=== PATIENT | female | born 1965 | race Caucasian/White ===

== ENCOUNTER 2016-08-09 20:43 | Emergency (ER) | payer OTHER ==
--- NOTE | 2016-08-09 22:32 | ED NURSING NOTES ---
Clinical Report - Nurses [facility] [address] [place] [address] 08/09/2016 20:44 Patient: JANIS YANG TRIAGE Triage time 20:55. Acuity: LEVEL 4. Chief Complaint: MIGRAINE HEADACHE. 20:58. Alert. SEPSIS SCREEN: Sepsis Screen. Negative (no infection suspected/documented). DURAN COMA SCORE: Duran Coma Scale: 15- eyes open spontaneously (4); best verbal response- oriented x 4 (5); best motor response- obeys commands (6). --20:58 Antoine Chavira R.N. 20:54 08/09/16. BP: 115/71. HR: 75. RR: 16. O2 saturation: 100%. Temp: 98.6 F (oral). Pain level now: 10/22. --20:58 Antoine Chavira R.N. Weight: 91.6 kg stated. Height/Length: 65.5 inches Per Patient. BMI: 33.1. --20:57 Antoine Chavira R.N. Medications Wellbutrin Oral 150 mg, daily. --20:55 Antoine Chavira R.N. LaMICtal Oral (Tablet 100 mg) 2 tablets, at bedtime. Levothyroxine Sodium Oral 50 mcg, daily. Neurontin Oral 300 mg, 3x a day. OxyCODONE HCl Oral, as needed. Prazosin HCl Oral 1 mg, daily. SEROquel Oral (Tablet 200 mg) 2 tablets, at bedtime. TiZANidine HCl Oral 8mg, at bedtime. --20:56 Antoine Chavira R.N. Zofran Oral 4 mg, PRN. --20:59 Antoine Chavria R.N. Medication/allergy information source: the patient. --20:58 Antoine Chavira R.N. Allergies Naproxen. Definite Severe (Abnormal bleeding) NSAIDs. Definite Moderate (Abnormal bleeding) Paper tape. Definite Moderate(rash) Sulfa Drugs. Definite Moderate(itching, rash) --20:55 Antoine Chavira R.N. History Arrived by private vehicle. Historian: patient. Accompanied by family. Primary physician (Morteza). This started yesterday. Treatment [employer]: (Oxycodone). PAST MEDICAL HX: Immunizations: up-to-date. The patient has had a hysterectomy. SOCIAL HX: Never smoker. No alcohol use or drug use. No recent travel. No infectious disease exposure. ABUSE ASSESSMENT: No report of abuse. FALL RISK ASSESSMENT: Fall risk assessment completed. No fall risk identified. NUTRITIONAL RISK ASSESSMENT: The nutritional risk assessment revealed no deficiencies. FUNCTIONAL ASSESSMENT: Functional assessment: no impairments noted. LEARNING NEEDS ASSESSMENT: The learning needs assessment revealed no barriers. SKIN INTEGRITY ASSESSMENT: Skin integrity risk assessment completed. No skin integrity risk identified. --20:58 Antoine Chavira R.N. PROBLEMS: Breast Cancer. Paronychia. Fibromyalgia. Migraine Headache. Headache. --20:57 Antoine Chavira R.N. ADDITIONAL SURGERIES: Bariatric Surgery. Cholecystectomy. Gastric bypass. Hernia Repair. Hysterectomy. Inguinal Hernia Repair. Knee Surgery. Mastectomy. Oophorectomy. Salpingectomy. Tonsillectomy. Umbilical Hernia Repair. --20:57 Antoine Chavira R.N. Interventions ID band on patient. To treatment room. --20:58 Antoine Chavira R.N. PHYSICAL ASSESSMENT 20:58. Ambulatory to room. GENERAL / NEURO / PSYCH: Alert. Oriented X 4. Speech within normal limits. HEENT: No facial asymmetry noted. RESPIRATORY: Respirations not labored. SKIN: Skin is warm and dry. --20:58 Antoine Chavira R.N. NURSING PROGRESS NOTES 20:54. Lights dimmed. --21:03 Antoine Chavira R.N. 20:59. Head of bed elevated. Two patient identifiers checked. Call light placed in reach. Bed placed in lowest position. Brakes of bed on. Patient ready for evaluation- chart flagged. --20:59 Antoine Chavira R.N. 21:48 08/09/2016 Site #1 started via IV in the left antecubital space with an 20g angiocath, with aseptic technique and good blood return; one attempt. Blood drawn: rainbow set. Labeled in the presence of the patient and held. Saline lock flushed with 10 mL saline. --21:58 Antoine Chavira R.N. 21:49 08/09/2016 Started bag #1 1000 mL IV Fluids IV NS (Saline); at 1000 mL/hr over 1 hour(s) via site #1 --21:58 Antoine Chavira R.N. 21:50 08/09/2016 PHENERGAN (Promethazine HCl) IVP 25 mg given over 2 minute(s) via site #1. Allergies verified and confirmed 5 rights. IV patency established. IV site checked: no pain, redness, or swelling. IV flushed thoroughly pre- and post-medication administration. --21:59 Antoine Chavira R.N. 21:52 08/09/2016 Benadryl (DiphenhydrAMINE HCl) IVP 12.5 mg given over 2 minute(s) via site #1. Allergies verified, confirmed 5 rights and sedative warning given to the patient. IV patency established. IV site checked: no pain, redness, or swelling. IV flushed thoroughly pre- and post-medication administration. --21:59 Antoine Chavira R.N. 21:55 08/09/2016 Decadron IVP 10 mg given over 2 minute(s) via site #1. Allergies verified and confirmed 5 rights. IV patency established. IV site checked: no pain, redness, or swelling. IV flushed thoroughly pre- and post-medication administration. --21:59 Antoine Chavira R.N. 21:57 08/09/2016 Dilaudid (HYDROmorphone HCl PF) IVP 2 mg given over 2 minute(s) via site #1. Allergies verified, confirmed 5 rights and sedative warning given to the patient. IV patency established. IV site checked: no pain, redness, or swelling. IV flushed thoroughly pre- and post-medication administration. --22:00 Antoine Chavira R.N. 21:58. Pulse oximeter placed on patient; monitor alarms on. --22:00 Antoine Chavira R.N. 22:20 08/09/2016 Dilaudid IVP Response: pain is improving. --22:25 Antoine Chavira R.N. 22:22 08/09/2016 Dilaudid (HYDROmorphone HCl PF) IVP 1 mg given over 2 minute(s) via site #1. Allergies verified, confirmed 5 rights and sedative warning given to the patient. IV patency established. IV site checked: no pain, redness, or swelling. IV flushed thoroughly pre- and post-medication administration. --22:24 Antoine Chavira R.N. 22:20. The patient is calm and resting quietly. GENERAL / NEURO / PSYCH: Alert. Oriented X 4. RESPIRATORY: No respiratory distress. SKIN: Skin is warm and dry. Skin color within normal limits. --22:26 Antoine Chavira R.N. 22:20 08/09/16. HR: 75. O2 saturation: 100%. Pain level now: 08/22. --22:26 Antoine Chavira R.N. 22:44. Overall patient status is improved- she states feels better. GENERAL / NEURO / PSYCH: Alert. Oriented X 4. RESPIRATORY: No respiratory distress. SKIN: Skin is warm and dry. Skin color within normal limits. --22:47 Antoine Chavira R.N. DISPOSITION / DISCHARGE 22:37 08/09/2016 IV Fluids IV NS Discontinued: bag #1 infused. Total amount infused: 1000 mL. IV patency established. IV site checked: no pain, redness, or swelling. IV flushed thoroughly. --22:42 Antoine Chavira R.N. 22:41 08/09/2016 Site #1 removed upon discharge. Catheter intact. Bandage applied. --22:43 Antoine Chavira R.N. Departure time: 22:46. Condition at departure: stable. No learning barriers present. Discharge instructions provided and reviewed with the patient and spouse. Patient and spouse verbalized understanding. Written instructions provided in Togolese. The patient was discharged home and accompanied by spouse. She left the Emergency Department ambulatory and via private vehicle. Spouse driving. FALL RISK ASSESSMENT: Fall risk assessment completed. No fall risk identified. --22:47 Antoine Chavira R.N. 22:41 08/09/16. BP: 114/73. HR: 70. RR: 16. O2 saturation: 99%. Pain level now: 06/22. --22:47 Antoine Chavira R.N. Locked/Released at 08/09/2016 22:48 by Antoine Chavira R.N.
--- NOTE | 2016-08-09 22:32 | ED ORDER SUMMARY ---
..... Patient: JANIS YANG OrderSheet [facility] VisitID: [id number] [place] [address] 50y, F Registration Date/Time: 08/09/2016 ORDER SHEET Weight: 91.6 kg (stated) Allergies: Naproxen, NSAIDs, Paper tape, Sulfa Drugs GENERAL ORDERS: MEDICATION ORDERS: Phenergan IV 25 mg (HIGH ALERT MEDICATION, NOW) (21:37 08/09/2016 Jose Roman) (Ack 21:38 JQuivey R.N.) (21:59 JQuivey R.N.) IV FLUIDS: IV NS : initial bolus 1000 mL (1000 mL/hr), then none - for X1 (NOW) (21:36 08/09/2016 Jose Roman) (Ack 21:38 JQuivey R.N.) (21:58 JQuivey R.N.) Benadryl IV 25 mg (NOW) (21:37 08/09/2016 Jose Roman) (Ack 21:39 JQuivey R.N.) (21:59 JQuivey R.N.) Dilaudid IV 2 mg (HIGH ALERT MEDICATION, NOW) (21:37 08/09/2016 Jose Roman) (Ack 21:39 JQuivey R.N.) (22:00 JQuivey R.N.) Decadron IV 10 mg (NOW) (21:38 08/09/2016 Jose Roman) (Ack 21:39 JQuivey R.N.) (21:59 JQuivey R.N.) Dilaudid IV 1 mg (HIGH ALERT MEDICATION, NOW) (22:18 08/09/2016 Jose Roman) (Ack 22:21 JQuivey R.N.) (22:24 JQuivey R.N.) ORDER SHEET NOTES: [Electronically signed by Antoine Chavira R.N. (22:48 08/09/2016)] [Electronically signed by Barrett Scott Dr. (08:09 08/11/2016)] [Electronically locked/signed by Antoine Chavira R.N. (22:48 08/09/2016)]
--- NOTE | 2016-08-09 22:32 | ED ORDER SUMMARY ---
..... Patient: JANIS YANG OrderSheet [facility] VisitID: [id number] [place] [address] 50y, F Registration Date/Time: 08/09/2016 ORDER SHEET Weight: 91.6 kg (stated) Allergies: Naproxen, NSAIDs, Paper tape, Sulfa Drugs GENERAL ORDERS: MEDICATION ORDERS: Phenergan IV 25 mg (HIGH ALERT MEDICATION, NOW) (21:37 08/09/2016 Jose Roman) (Ack 21:38 JQuivey R.N.) (21:59 JQuivey R.N.) IV FLUIDS: IV NS : initial bolus 1000 mL (1000 mL/hr), then none - for X1 (NOW) (21:36 08/09/2016 Jose Roman) (Ack 21:38 JQuivey R.N.) (21:58 JQuivey R.N.) Benadryl IV 25 mg (NOW) (21:37 08/09/2016 Jose Roman) (Ack 21:39 JQuivey R.N.) (21:59 JQuivey R.N.) Dilaudid IV 2 mg (HIGH ALERT MEDICATION, NOW) (21:37 08/09/2016 Jose Roman) (Ack 21:39 JQuivey R.N.) (22:00 JQuivey R.N.) Decadron IV 10 mg (NOW) (21:38 08/09/2016 Jose Roman) (Ack 21:39 JQuivey R.N.) (21:59 JQuivey R.N.) Dilaudid IV 1 mg (HIGH ALERT MEDICATION, NOW) (22:18 08/09/2016 Jose Roman) (Ack 22:21 JQuivey R.N.) (22:24 JQuivey R.N.) ORDER SHEET NOTES: [Electronically signed by Antoine Chavira R.N. (22:48 08/09/2016)] [Electronically signed by Barrett Scott Dr. (08:09 08/11/2016)] [Electronically locked/signed by Antoine Chavira R.N. (22:48 08/09/2016)]
--- NOTE | 2016-08-09 22:32 | ED CLINICAL REPORT ---
Clinical Report - Physicians/Mid Levels [facility] [address] [place] [address] 08/09/2016 20:44 Patient: JANIS YANG Time Seen: 2129. Arrived- By private vehicle. Historian- patient. HISTORY OF PRESENT ILLNESS Chief Complaint: HEADACHE. Is still present and worsening. (max intensity today). This started yesterday. It was gradual in onset and has been constant but is not gone now. Patient was last known well (yesterday). Onset during rest. Described as a global headache and located in the frontal region. No neck pain. Not located in the facial region. At its maximum, severity described as severe. When seen in the E.D., severity described as severe. Modifying factors: worsened by bright light and noise; (also worsens with dehydration and prolonged sun exposure. was at a wedding yesterday and had both of those reportedly). The patient has had photophobia and nausea. No preceding symptoms, blurred vision, numbness or weakness. No recent travel. Similar symptoms previously: Many times. Recent medical care: Not recently seen/assessed. REVIEW OF SYSTEMS No fever or skin rash. All systems otherwise negative, except as recorded above. PAST HISTORY See nurses notes. Medications: Zofran Oral 4 mg, PRN. LaMICtal Oral (Tablet 100 mg) 2 tablets, at bedtime. Levothyroxine Sodium Oral 50 mcg, daily. Neurontin Oral 300 mg, 3x a day. OxyCODONE HCl Oral, as needed. Prazosin HCl Oral 1 mg, daily. SEROquel Oral (Tablet 200 mg) 2 tablets, at bedtime. TiZANidine HCl Oral 8mg, at bedtime. Wellbutrin Oral 150 mg, daily. Allergies: Naproxen. Definite Severe (Abnormal bleeding) NSAIDs. Definite Moderate (Abnormal bleeding) Paper tape. Definite Moderate(rash) Sulfa Drugs. Definite Moderate(itching, rash). SOCIAL HISTORY Never smoker. No alcohol use or drug use. No recent travel. Is a local resident. ADDITIONAL NOTES The nursing notes have been reviewed. PHYSICAL EXAM Vital Signs: 08/09/2016 20:54 BP: 115/71. HR: 75. RR: 16. O2 saturation: 100%. Temp: 98.6 F. Pain level now: 8/10. Blood pressure normal. Oxygen saturation normal. Appearance: Alert. No acute distress. Eyes: Pupils equal, round and reactive to light. Eyes normal inspection. (no consensual photophobia. Papilledema not appreciated. Normal-appearing retina vasculature.). ENT: Ears normal. Nose normal. Pharynx normal. Neck: Normal inspection. Neck supple. No meningeal signs. CVS: Normal heart rate and rhythm. Heart sounds normal. Pulses normal. Respiratory: No respiratory distress. Breath sounds normal. Abdomen: Soft and nontender. No organomegaly. Back: Normal inspection. Skin: Skin warm and dry. Normal skin color. No rash. Normal skin turgor. Extremities: Extremities exhibit normal ROM. No lower extremity edema. Neuro: Oriented X 3. Alert. Mood/affect normal. Speech normal. Cranial nerves normal (as tested). No cerebellar findings. No motor deficit. No sensory deficit. PROGRESS AND PROCEDURES Course of Care: The patient is a pleasant 50-year-old female who is well-known to our facility presenting for a vaginal headache. Patient with long history of migraines and multiple visits for migraines. Patient has been treated with pain medication here in the past. Had discussion with patient in regards to medication that has worked for her in the past. Patient reports that they normally give her Dilaudid. Patient otherwise without signs of meningitis or space-occupying lesion. Because of the patient's time course, do not feel subarachnoid hemorrhage is likely. Did not fill workup for subarachnoid hemorrhage is warranted at this time. Patient was reevaluated after the medications of been provided. The patient is that they normally give her 3 mg of Dilaudid. Another milligram of Dilaudid was provided. Patient is an reevaluated after that. Patient reports significant improvement with her symptoms. patient continues to be nontoxic and in no acute distress. Vital signs unremarkable. Patient continues to be afebrile. I discussed with the patient and the patient's family there workup here in the emergency department including diagnosis, home care, follow-up, and return precautions. All questions have been answered. The patient expressed understanding of these instructions and was agreeable to them. Disposition: Discharged. Condition: good. CLINICAL IMPRESSION Acute headache. INSTRUCTIONS Warnings: GENERAL WARNINGS: Return or contact your physician immediately if your condition worsens or changes unexpectedly, if not improving as expected, or if other problems arise. SPECIFICALLY, return if you develop fever, vomiting, numbness, weakness, difficulty thinking, visual disturbances, fainting or extreme fatigue. Your Current Medications: CONTINUE TAKING THE FOLLOWING MEDICATIONS: LaMICtal Oral : Tablet 100 mg, 2 tablets at bedtime. Levothyroxine Sodium Oral : 50 mcg daily. Neurontin Oral : 300 mg 3x a day. OxyCODONE HCl Oral : prn. Prazosin HCl Oral : 1 mg daily. SEROquel Oral : Tablet 200 mg, 2 tablets at bedtime. TiZANidine HCl Oral : 8mg at bedtime. Wellbutrin Oral : 150 mg daily. Zofran Oral : 4 mg PRN. Follow-up: Return to the emergency department as needed. Follow up with your doctor in three days. Reason for referral: recheck today's concerns Screening today revealed the patient's blood pressure to be in the normal range. The patient should follow up with a primary care provider for blood pressure management. Understanding of the discharge instructions verbalized by patient. (Electronically signed by Barrett Scott Dr. 08/11/2016 8:09)
--- NOTE | 2016-08-11 08:10 | ED MAR SUMMARY ---
..... Medication Administration Record [facility] [address] [place] [address] Patient: JANIS YANG Visit ID: [id number] 50y, F Weight: 91.6 kg Height/Length: 65.5 in BMI: 33.1 ALLERGIES: Naproxen, NSAIDs, Paper tape, Sulfa Drugs Start 21:49 08/09/2016 Antoine Chavira R.NFlorian, Stop 22:37 08/09/2016 Antoine Chavira R.N. Medication Administered: IV NS (SALINE), Dose: IV Fluids over 1 hour(s), Rate: 1000 mL/hr, Dispensed: 1000 mL bag, Site: #1 left AC. Medication Ordered: IV NS : initial bolus 1000 mL (1000 mL/hr), then none - for X1 (NOW). Given 21:50 08/09/2016 Antoine Chavira R.N. Medication Administered: PHENERGAN [IVP] (PROMETHAZINE HCL), Dose: 25 mg IVP over 2 minute(s), Site: #1 left AC. Medication Ordered: Phenergan IV 25 mg (HIGH ALERT MEDICATION, NOW). Given 21:52 08/09/2016 Antoine Chavira R.N. Medication Administered: BENADRYL [IVP] (DIPHENHYDRAMINE HCL), Dose: 12.5 mg IVP over 2 minute(s), Site: #1 left AC. Medication Ordered: Benadryl IV 25 mg (NOW). Given 21:55 08/09/2016 Antoine Chavira R.N. Medication Administered: DECADRON [IVP], Dose: 10 mg IVP over 2 minute(s), Site: #1 left AC. Medication Ordered: Decadron IV 10 mg (NOW). Given 21:57 08/09/2016 Antoine Chavira R.N. Medication Administered: DILAUDID [IVP] (HYDROMORPHONE HCL PF), Dose: 2 mg IVP over 2 minute(s), Site: #1 left AC. Medication Ordered: Dilaudid IV 2 mg (HIGH ALERT MEDICATION, NOW). Given 22:22 08/09/2016 Antoine Chavira R.N. Medication Administered: DILAUDID [IVP] (HYDROMORPHONE HCL PF), Dose: 1 mg IVP over 2 minute(s), Site: #1 left AC. Medication Ordered: Dilaudid IV 1 mg (HIGH ALERT MEDICATION, NOW).
--- NOTE | 2016-08-11 08:10 | ED DISCHARGE INSTRUCTIONS ---
Patient: JANIS YANG General Instructions [facility] VisitID: [id number] [place] [address] 50y, F Registration Date/Time: 08/09/2016 Acute headache. INSTRUCTIONS Warnings: GENERAL WARNINGS: Return or contact your physician immediately if your condition worsens or changes unexpectedly, if not improving as expected, or if other problems arise. SPECIFICALLY, return if you develop fever, vomiting, numbness, weakness, difficulty thinking, visual disturbances, fainting or extreme fatigue. Your Current Medications: CONTINUE TAKING THE FOLLOWING MEDICATIONS: LaMICtal Oral : Tablet 100 mg, 2 tablets at bedtime. Levothyroxine Sodium Oral : 50 mcg daily. Neurontin Oral : 300 mg 3x a day. OxyCODONE HCl Oral : prn. Prazosin HCl Oral : 1 mg daily. SEROquel Oral : Tablet 200 mg, 2 tablets at bedtime. TiZANidine HCl Oral : 8mg at bedtime. Wellbutrin Oral : 150 mg daily. Zofran Oral : 4 mg PRN. Follow-up: Return to the emergency department as needed. Follow up with your doctor in three days. Reason for referral: recheck today's concerns Screening today revealed the patient's blood pressure to be in the normal range. The patient should follow up with a primary care provider for blood pressure management. Understanding of the discharge instructions verbalized by patient. ADDITIONAL INFORMATION Headache [Unspecified] The cause of your headache today is not clear, but it does not appear to be the sign of any serious illness. Under stress, some people tense the muscles of their shoulder, neck and scalp without knowing it. If this condition lasts long enough, a TENSION HEADACHE can occur. A MIGRAINE HEADACHE is caused by changes in blood flow to the brain. A migraine attack may be triggered by emotional stress, hormone changes during the menstrual cycle, oral contraceptives, alcohol use, certain foods containing tyramine, eye strain, weather changes, missing meals, lack of sleep or oversleeping. Other causes of headache include a viral illness with high fever, head injury with concussion, sinus, ear or throat infection, dental pain and TMJ (jaw joint) pain. More serious but less common causes of headache include stroke, brain hemorrhage, brain tumor, meningitis and encephalitis. Home Care: If you were given pain medicine for this headache, do not drive yourself home. Arrange for a ride, instead. When you get home, try to sleep. You should feel much better when you wake up. Apply heat to the back of your neck to relieve neck muscle spasm. Migraine headaches may respond best to an ice pack on the forehead or at the base of the skull. If you are having nausea or vomiting, follow a light diet until your headache is relieved. If you have a migraine type headache, use sunglasses when in the daylight or around bright indoor lighting until symptoms improve. Bright glaring light can worsen this kind of headache. Follow Up with your doctor if the headache is not better within the next 24 hours. If you have frequent headaches you should discuss a treatment plan with your primary care doctor. By being aware of the earliest signs of headache, and starting treatment right away, you may be able to stop the pain yourself. Get Prompt Medical Attention if any of the following occur: Worsening of your head pain or no improvement within 24 hours Repeated vomiting (unable to keep liquids down) Fever of 100.4F (38C) or higher, or as directed by your healthcare provider Stiff neck Extreme drowsiness, confusion or fainting Dizziness, vertigo (dizziness with spinning sensation) Weakness of an arm or leg or one side of the face Difficulty with speech or vision You have been given the following additional information: Headache, Unspecified (Electronically signed by Barrett Scott Dr. 08/11/2016 8:09)
--- NOTE | 2016-08-11 08:10 | ED MED RECONCILIATION SUMMARY ---
Patient: JANIS YANG Medication Reconciliation Report [facility]ated [facility] VisitID: [id number] [address] [place] [address] 50y, F Registration Date/Time: 08/09/2016 Weight: 91.6 kg Height/Length: (not available) BMI: 33.1 ALLERGIES: Naproxen, NSAIDs, Paper tape, Sulfa Drugs The patient's Home Medications are listed below: CONTINUE TAKING THE FOLLOWING MEDICATIONS: LaMICtal Oral (100 mg) 2 tablets, at bedtime Levothyroxine Sodium Oral 50 mcg, daily Neurontin Oral 300 mg, 3x a day OxyCODONE HCl Oral Prazosin HCl Oral 1 mg, daily SEROquel Oral (200 mg) 2 tablets, at bedtime TiZANidine HCl Oral 8mg, at bedtime Wellbutrin Oral 150 mg, daily Zofran Oral 4 mg, PRN The source(s) of the original Home Medication information: patient The following Medications were given to the patient in the Emergency Department: IV NS IV Fluids bolus 0, then 1000 mL/hr, administered: 08/09/2016 9:49:00 PM PHENERGAN [IVP] IVP 25 mg, administered: 08/09/2016 9:50:00 PM Benadryl [IVP] IVP 12.5 mg, administered: 08/09/2016 9:52:00 PM Decadron [IVP] IVP 10 mg, administered: 08/09/2016 9:55:00 PM Dilaudid [IVP] IVP 2 mg, administered: 08/09/2016 9:57:00 PM Dilaudid [IVP] IVP 1 mg, administered: 08/09/2016 10:22:00 PM The following Medications were prescribed to the patient: None.
--- NOTE | 2016-08-11 08:10 | ED MAR SUMMARY ---
..... Medication Administration Record [facility] [address] [place] [address] Patient: JANIS YANG Visit ID: [id number] 50y, F Weight: 91.6 kg Height/Length: 65.5 in BMI: 33.1 ALLERGIES: Naproxen, NSAIDs, Paper tape, Sulfa Drugs Start 21:49 08/09/2016 Antoine Chavira R.NFlorian, Stop 22:37 08/09/2016 Antoine Chavira R.N. Medication Administered: IV NS (SALINE), Dose: IV Fluids over 1 hour(s), Rate: 1000 mL/hr, Dispensed: 1000 mL bag, Site: #1 left AC. Medication Ordered: IV NS : initial bolus 1000 mL (1000 mL/hr), then none - for X1 (NOW). Given 21:50 08/09/2016 Antoine Chavira R.N. Medication Administered: PHENERGAN [IVP] (PROMETHAZINE HCL), Dose: 25 mg IVP over 2 minute(s), Site: #1 left AC. Medication Ordered: Phenergan IV 25 mg (HIGH ALERT MEDICATION, NOW). Given 21:52 08/09/2016 Antoine Chavira R.N. Medication Administered: BENADRYL [IVP] (DIPHENHYDRAMINE HCL), Dose: 12.5 mg IVP over 2 minute(s), Site: #1 left AC. Medication Ordered: Benadryl IV 25 mg (NOW). Given 21:55 08/09/2016 Antoine Chavira R.N. Medication Administered: DECADRON [IVP], Dose: 10 mg IVP over 2 minute(s), Site: #1 left AC. Medication Ordered: Decadron IV 10 mg (NOW). Given 21:57 08/09/2016 Antoine Chavira R.N. Medication Administered: DILAUDID [IVP] (HYDROMORPHONE HCL PF), Dose: 2 mg IVP over 2 minute(s), Site: #1 left AC. Medication Ordered: Dilaudid IV 2 mg (HIGH ALERT MEDICATION, NOW). Given 22:22 08/09/2016 Antoine Chavira R.N. Medication Administered: DILAUDID [IVP] (HYDROMORPHONE HCL PF), Dose: 1 mg IVP over 2 minute(s), Site: #1 left AC. Medication Ordered: Dilaudid IV 1 mg (HIGH ALERT MEDICATION, NOW).
--- NOTE | 2016-08-11 08:10 | ED MED RECONCILIATION SUMMARY ---
Patient: JANIS YANG Medication Reconciliation Report [facility] VisitID: [id number] [address] [place] [address] 50y, F Registration Date/Time: 08/09/2016 Weight: 91.6 kg Height/Length: (not available) BMI: 33.1 ALLERGIES: Naproxen, NSAIDs, Paper tape, Sulfa Drugs The patient's Home Medications are listed below: CONTINUE TAKING THE FOLLOWING MEDICATIONS: LaMICtal Oral (100 mg) 2 tablets, at bedtime Levothyroxine Sodium Oral 50 mcg, daily Neurontin Oral 300 mg, 3x a day OxyCODONE HCl Oral Prazosin HCl Oral 1 mg, daily SEROquel Oral (200 mg) 2 tablets, at bedtime TiZANidine HCl Oral 8mg, at bedtime Wellbutrin Oral 150 mg, daily Zofran Oral 4 mg, PRN The source(s) of the original Home Medication information: patient The following Medications were given to the patient in the Emergency Department: IV NS IV Fluids bolus 0, then 1000 mL/hr, administered: 08/09/2016 9:49:00 PM PHENERGAN [IVP] IVP 25 mg, administered: 08/09/2016 9:50:00 PM Benadryl [IVP] IVP 12.5 mg, administered: 08/09/2016 9:52:00 PM Decadron [IVP] IVP 10 mg, administered: 08/09/2016 9:55:00 PM Dilaudid [IVP] IVP 2 mg, administered: 08/09/2016 9:57:00 PM Dilaudid [IVP] IVP 1 mg, administered: 08/09/2016 10:22:00 PM The following Medications were prescribed to the patient: None.
== END 2016-08-09 22:46 | disposition home or self-care (01) ==
LOC: ED SRH 20:43
DX: R51 Headache (principal); Z79.899 Other long term (current) drug therapy; Z88.6 Allergy status to analgesic agent; Z88.2 Allergy status to sulfonamides; Z91.09 Other allergy status, other than to drugs and biological substances

== ENCOUNTER 2016-08-19 11:43 | Emergency (ER) | payer OTHER ==
--- NOTE | 2016-08-19 13:34 | ED CLINICAL REPORT ---
Clinical Report - Physicians/Mid Levels [facility] [address] [place] [address] 08/19/2016 11:44 Patient: JANIS YANG Time Seen: 1148. Arrived- By private vehicle. Historian- patient. HISTORY OF PRESENT ILLNESS Is still present (unchanged). Chief Complaint: HEADACHE. This started today. It was abrupt in onset and has been constant but is not gone now. Patient was last known well (yesterday). Onset during rest. 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 Located in the region of the right eye and left eye. No neck pain. Not located in the facial region. At its maximum, severity described as severe. When seen in the E.D., severity described as severe. Modifying factors: worsened by bright light and noise; relieved by rest and closing eyes. The patient has had photophobia and nausea. No numbness, weakness or vomiting. (states it reached its max intensity after 3 hours.). Similar symptoms previously: Recent medical care: The patient was seen recently by a health care provider. REVIEW OF SYSTEMS No chest pain, difficulty breathing or skin rash. All systems otherwise negative, except as recorded above. PAST HISTORY See nurses notes. Medications: TiZANidine HCl Oral 8mg, at bedtime. Wellbutrin Oral 150 mg, daily. Zofran Oral 4 mg, PRN. Levothyroxine Sodium Oral 50 mcg, daily. Neurontin Oral 300 mg, 3x a day. OxyCODONE HCl Oral, as needed. Prazosin HCl Oral 1 mg, daily. SEROquel Oral (Tablet 200 mg) 2 tablets, at bedtime. LaMICtal Oral (Tablet 100 mg) 2 tablets, at bedtime. Allergies: Naproxen. Definite Severe (Abnormal bleeding) NSAIDs. Definite Moderate (Abnormal bleeding) Paper tape. Definite Moderate(rash) Sulfa Drugs. Definite Moderate(itching, rash). SOCIAL HISTORY Never smoker. Alcohol use. No drug use. No recent travel. Is a local resident. PHYSICAL EXAM Appearance: Alert. Patient in mild distress. (pleasant. Cooperative. Nontoxic.). Eyes: Pupils equal, round and reactive to light. Eyes normal inspection. (No papilledema. Normal appearing retinal vasculature. Normal lids and lashes and lacrimal. No conjunctival injection. No Photophobia). ENT: Ears normal. Nose normal. Pharynx normal. Neck: Normal inspection. Neck supple. No meningeal signs. CVS: Normal heart rate and rhythm. Heart sounds normal. Pulses normal. Respiratory: No respiratory distress. Breath sounds normal. Abdomen: Soft and nontender. No organomegaly. Back: Normal inspection. Neuro: Oriented X 3. Alert. Mood/affect normal. Speech normal. Cranial nerves normal (as tested). No cerebellar findings. No motor deficit. No sensory deficit. Reflexes normal. PROGRESS AND PROCEDURES Course of Care: Patient is a pleasant 50 yo female with hx of migraines presenting for evaluation of headache similar to those in the past. Patient as been evaluated for SAH, increased ICP, meningitis, and space occupying lesion. Patients exam and history are not consistent with these entities. Patient is agreeable to treatment for headache. Medications have been ordered after reviewing allergies and intolerances. Patient will be reevaluated after the medications have been given. Patient was reevaluated and found to be significantly improved. Patient reports being able to return home and follow up with doctor. Repeat examination continues to be benign. I discussed with the patient workup, diagnosis, home care, follow-up, and return precautions. All questions have been answered. The patient expressed understanding of these instructions and was agreeable to them. Do not feel patient needs to be admitted to the hospital or require further ED workup/evaluation. Disposition: Discharged. Condition: good. CLINICAL IMPRESSION Acute headache (retro-orbital bilateral). INSTRUCTIONS Warnings: GENERAL WARNINGS: Return or contact your physician immediately if your condition worsens or changes unexpectedly, if not improving as expected, or if other problems arise. SPECIFICALLY, return if you develop fever, vomiting, numbness, weakness, difficulty thinking, visual disturbances, fainting or extreme fatigue. Your Current Medications: CONTINUE TAKING THE FOLLOWING MEDICATIONS: LaMICtal Oral : Tablet 100 mg, 2 tablets at bedtime. Levothyroxine Sodium Oral : 50 mcg daily. Neurontin Oral : 300 mg 3x a day. OxyCODONE HCl Oral : prn. Prazosin HCl Oral : 1 mg daily. SEROquel Oral : Tablet 200 mg, 2 tablets at bedtime. TiZANidine HCl Oral : 8mg at bedtime. Wellbutrin Oral : 150 mg daily. Zofran Oral : 4 mg PRN. Follow-up: Return to the emergency department as needed. Follow up with your doctor in three days. Reason for referral: recheck today's concerns. Summary of care provided to patient via paper. Screening today revealed the patient's blood pressure to be in the normal range. The patient should follow up with a primary care provider for blood pressure management. Understanding of the discharge instructions verbalized by patient. (Electronically signed by Barrett Scott Dr. 08/19/2016 13:36)
--- NOTE | 2016-08-19 13:34 | ED NURSING NOTES ---
Clinical Report - Nurses [facility] [address] [place] [address] 08/19/2016 11:44 Patient: JANIS YANG TRIAGE Triage time 11:49. Acuity: LEVEL 4. Chief Complaint: MIGRAINE HEADACHE. 11:50 08/19/16. 11:50 08/19/16. Alert. SEPSIS SCREEN: Sepsis Screen. Negative (no infection suspected/documented). DURAN COMA SCORE: Duran Coma Scale: 15- eyes open spontaneously (4); best verbal response- oriented x 4 (5); best motor response- obeys commands (6). --11:51 Barry Moreno R.N. 11:49 08/19/16. BP: 121/77. HR: 88. RR: 18. O2 saturation: 100%. Temp: 98.2 F (oral). Pain level now: 10/22. --11:51 Barry Moreno R.N. Weight: 92.5 kg stated. Height/Length: 65 inches Per Patient. BMI: 34. --11:50 Barry Moreno R.N. Medications LaMICtal Oral (Tablet 100 mg) 2 tablets, at bedtime. --11:51 Barry Moreno R.N. Levothyroxine Sodium Oral 50 mcg, daily. Neurontin Oral 300 mg, 3x a day. OxyCODONE HCl Oral, as needed. Prazosin HCl Oral 1 mg, daily. SEROquel Oral (Tablet 200 mg) 2 tablets, at bedtime. --11:51 Barry Moreno R.N. TiZANidine HCl Oral 8mg, at bedtime. Wellbutrin Oral 150 mg, daily. Zofran Oral 4 mg, PRN. --11:51 Barry Moreno R.N. Medication/allergy information source: the patient and patient's family. --11:51 Barry Moreno R.N. Allergies Naproxen. Definite Severe (Abnormal bleeding) NSAIDs. Definite Moderate (Abnormal bleeding) Paper tape. Definite Moderate(rash) Sulfa Drugs. Definite Moderate(itching, rash) --11:51 Barry Moreno R.N. History Arrived by private vehicle. Historian: patient. Accompanied by family. Primary physician (PCP-ALEX RICHARDSON, Pain Managment ). 11:50 08/19/16. This started today. She has had nausea. 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 PAST MEDICAL HX: Immunizations: up-to-date. The patient has had a hysterectomy. SOCIAL HX: Never smoker. No alcohol use or drug use. No recent travel. No infectious disease exposure. No known contact with a sick individual. ABUSE ASSESSMENT: No report of abuse. FALL RISK ASSESSMENT: Fall risk assessment completed. No fall risk identified. NUTRITIONAL RISK ASSESSMENT: The nutritional risk assessment revealed no deficiencies. FUNCTIONAL ASSESSMENT: Functional assessment: no impairments noted. LEARNING NEEDS ASSESSMENT: The learning needs assessment revealed no barriers. SKIN INTEGRITY ASSESSMENT: Skin integrity risk assessment completed. No skin integrity risk identified. --11:51 Barry Moreno R.N. PROBLEMS: Breast Cancer. Dysuria. LNMP - Last Normal Menstrual Period. Chronic Headache. Paronychia. Tetanus Status. Fibromyalgia. Migraine Headache. Lupus. Headache. Immunizations. --11:51 Barry Moreno R.N. Cancer [Inactive]. --11:51 Barry Moreno R.N. ADDITIONAL SURGERIES: Bariatric Surgery. Cholecystectomy. Gastric bypass. Hernia Repair. Hysterectomy. Inguinal Hernia Repair. Knee Surgery. Mastectomy. Oophorectomy. Salpingectomy. Tonsillectomy. Umbilical Hernia Repair. --11:51 Barry Moreno R.N. Assessment 11:50 08/19/16. --11:51 Barry Moreno R.N. Interventions 11:50 08/19/16. 11:50 08/19/16. ID and allergy band on patient. To treatment room. --11:51 Barry Moreno R.N. PHYSICAL ASSESSMENT 11:52 08/19/16. Ambulatory to room. GENERAL / NEURO / PSYCH: Appears in pain. RESPIRATORY: Respirations not labored. CVS: Capillary refill less than 2 seconds. SKIN: Skin is warm and dry. --11:52 Barry Moreno R.N. NURSING PROGRESS NOTES 11:52 08/19/16. The plan of care for this patient has been created. Patient gowned. Head of bed elevated. Reassurance given. Lights dimmed. Call light placed in reach. Side rails up x 2. Bed placed in lowest position. Brakes of bed on. --11:52 Barry Moreno R.N. 11:52 08/19/16. Patient ready for evaluation- chart flagged and ED physician notified. --11:52 Barry Moreno R.N. 11:54 08/19/2016 Zofran ODT (Ondansetron) PO 4 mg given. Allergies verified and confirmed 5 rights. --11:54 Barry Moreno R.N. 12:14 08/19/2016 Site #1 started via IV in the right antecubital space with an 20g angiocath, with aseptic technique and good blood return; one attempt. Saline lock flushed with 10 mL saline. --12:14 Barry Moreno R.N. 12:14 08/19/2016 Started bag #1 1000 mL IV Fluids IV NS (Saline); at 1000 mL/hr over 1 hour(s) via site #1. Allergies verified and confirmed 5 rights. IV patency established. IV site checked: no pain, redness, or swelling. IV flushed thoroughly pre- and post-medication administration. Completed per protocol. --12:14 Barry Moreno R.N. 12:15 08/19/2016 Dilaudid (HYDROmorphone HCl PF) IVP 2 mg given over 2 minute(s) via site #1. Allergies verified, confirmed 5 rights and sedative warning given to the patient. IV patency established. IV site checked: no pain, redness, or swelling. IV flushed thoroughly pre- and post-medication administration. IVP given by RN. --12:15 Barry Moreno R.N. 12:19 08/19/2016 Benadryl (DiphenhydrAMINE HCl) IVP 25 mg given over 2 minute(s) via site #1. Allergies verified, confirmed 5 rights and sedative warning given to the patient. IV patency established. IV site checked: no pain, redness, or swelling. IV flushed thoroughly pre- and post-medication administration. IVP given by RN. --12:20 Barry Moreno R.N. 12:20 08/19/2016 Decadron IVP 10 mg given over 2 minute(s) via site #1. Allergies verified and confirmed 5 rights. IV patency established. IV site checked: no pain, redness, or swelling. IV flushed thoroughly pre- and post-medication administration. IVP given by RN. --12:20 Barry Moreno R.N. 12:20 08/19/2016 PHENERGAN (Promethazine HCl) IVP 25 mg given over 2 minute(s) via site #1. Allergies verified and confirmed 5 rights. IV patency established. IV site checked: no pain, redness, or swelling. IV flushed thoroughly pre- and post-medication administration. IVP given by RN. --12:20 Barry Moreno R.N. 12:22 08/19/16. Pulse oximeter and NIBP monitor placed on patient; monitor alarms on. --12:22 Barry Moreno R.N. 12:22 08/19/16. BP: 140/83. HR: 81. RR: 16. O2 saturation: 100% on room air. Pain level now: 5/10. --12:23 Barry Moreno R.N. 12:08/19/16. --12:23 Barry Moreno R.N. 12:08/19/16. Reassessment after medication administered. She is resting quietly and has had no adverse reaction. Overall patient status- she states feels better. GENERAL / NEURO / PSYCH: Alert. Oriented X 4. RESPIRATORY: No respiratory distress. SKIN: Skin is warm and dry. Skin color within normal limits. --12:24 Barry Moreno R.N. 12:42 08/19/16. Patient and family informed about reason for wait and about plan of care. --12:42 Barry Moreno R.N. 13:10 08/19/16. BP: 123/80. HR: 79. RR: 14. O2 saturation: 100% on room air. Temp: 98.2 F (oral). --13:11 Barry Moreno R.N. 12:56 08/19/2016 IV Fluids IV NS Discontinued: bag #1 infused. Total amount infused: 1000 mL. IV patency established. IV site checked: no pain, redness, or swelling. IV flushed thoroughly. --13:11 Barry Moreno R.N. 13:09 08/19/2016 Dilaudid (HYDROmorphone HCl PF) IVP 1 mg given over 2 minute(s) via site #1. Allergies verified, confirmed 5 rights and sedative warning given to the patient. IV patency established. IV site checked: no pain, redness, or swelling. IV flushed thoroughly pre- and post-medication administration. IVP given by RN. --13:09 Barry Moreno R.N. 13:11 08/19/16. --13:11 Barry Moreno R.N. 13:18 08/19/16. Reassessment after medication administered. Overall patient status is the same- she states feels the same. ( 5/10 pain). GENERAL / NEURO / PSYCH: Alert. Oriented X 4. RESPIRATORY: No respiratory distress. SKIN: Skin is warm and dry. Skin color within normal limits. --13:18 Barry Moreno R.N. DISPOSITION / DISCHARGE 13:40 08/19/2016 Site #1 removed upon discharge. Catheter intact. Bandage applied. --13:40 Barry Moreno R.N. 13:41 08/19/16. Condition at departure: improved. The goals identified in the patient's plan of care were met. No learning barriers present. Discharge instructions provided and reviewed with the patient and spouse. Reviewed warnings. Reviewed medication(s). Treatments reviewed. Patient and spouse verbalized understanding. Written instructions provided in Singaporean. The patient was discharged by the physician. She was discharged home and accompanied by family. She left the Emergency Department ambulatory and via private vehicle. Family member driving. FALL RISK ASSESSMENT: Fall risk assessment completed. No fall risk identified. --13:41 Barry Moreno R.N. 13:40 08/19/16. BP: 135/72. HR: 76. RR: 14. O2 saturation: 100% on room air. Temp: 97.9 F (oral). Pain level now: 04/24. --13:41 Barry Moreno R.N. 13:41 08/19/16. Departure time: 13:41. --13:41 Barry Moreno R.N. Locked/Released at 08/19/2016 13:45 by Barry Moreno R.N.
--- NOTE | 2016-08-19 13:34 | ED ORDER SUMMARY ---
..... Patient: JANIS YANG OrderSheet [facility] VisitID: [id number] [address] [place] [address] 50y, F Registration Date/Time: 08/19/2016 ORDER SHEET Weight: 92.5 kg (stated) Allergies: Naproxen, NSAIDs, Paper tape, Sulfa Drugs GENERAL ORDERS: Pulse oximeter (12:23 08/19/2016 JBoardley R.N. per protocol) (12:23 JBoardley R.N.) MEDICATION ORDERS: Zofran ODT PO 4 mg (NOW) (11:54 08/19/2016 JBoartomy R.N. per protocol) (11:54 JBoardley R.N.) Phenergan IV 25 mg (HIGH ALERT MEDICATION, NOW) (12:00 08/19/2016 Jose Roman) (Ack 12:02 JBoardley R.N.) (12:20 JBoardley R.N.) IV FLUIDS: IV NS : initial bolus 1000 mL (1000 mL/hr), then none - for X1 (NOW) (11:59 08/19/2016 Jose Roman) (Ack 12:01 JBoardley R.N.) (12:14 JBoardley R.N.) Dilaudid IV 2 mg (HIGH ALERT MEDICATION, NOW) (11:59 08/19/2016 Jose Roman) (Ack 12:01 JBoardley R.N.) (12:15 JBoardley R.N.) Benadryl IV 25 mg (NOW) (12:00 08/19/2016 Jose Roman) (Ack 12:02 JBoardley R.N.) (12:20 JBoardley R.N.) Decadron IV 10 mg (NOW) (12:00 08/19/2016 Jose Roman) (Ack 12:02 JBoardley R.N.) (12:20 JBoardley R.N.) Dilaudid IV 1 mg (HIGH ALERT MEDICATION, NOW) (13:06 08/19/2016 Jose Roman) (Ack 13:07 JBoardley R.N.) (13:09 Nubia Meredith) ORDER SHEET NOTES: [Electronically signed by Barrett Scott Dr. (13:36 08/19/2016)] [Electronically signed by Barry Moreno R.N. (13:45 08/19/2016)] [Electronically locked/signed by Barry Moreno R.N. (13:45 08/19/2016)]
--- NOTE | 2016-08-19 13:34 | ED ORDER SUMMARY ---
..... Patient: JANIS YANG OrderSheet [facility] VisitID: [id number] [address] [place] [address] 50y, F Registration Date/Time: 08/19/2016 ORDER SHEET Weight: 92.5 kg (stated) Allergies: Naproxen, NSAIDs, Paper tape, Sulfa Drugs GENERAL ORDERS: Pulse oximeter (12:23 08/19/2016 JBoardley R.N. per protocol) (12:23 JBoardley R.N.) MEDICATION ORDERS: Zofran ODT PO 4 mg (NOW) (11:54 08/19/2016 JBoartomy R.N. per protocol) (11:54 JBoardley R.N.) Phenergan IV 25 mg (HIGH ALERT MEDICATION, NOW) (12:00 08/19/2016 Jose Roman) (Ack 12:02 JBoardley R.N.) (12:20 JBoardley R.N.) IV FLUIDS: IV NS : initial bolus 1000 mL (1000 mL/hr), then none - for X1 (NOW) (11:59 08/19/2016 Jose Roman) (Ack 12:01 JBoardley R.N.) (12:14 JBoardley R.N.) Dilaudid IV 2 mg (HIGH ALERT MEDICATION, NOW) (11:59 08/19/2016 Jose Roman) (Ack 12:01 JBoardley R.N.) (12:15 JBoardley R.N.) Benadryl IV 25 mg (NOW) (12:00 08/19/2016 Jose Roman) (Ack 12:02 JBoardley R.N.) (12:20 JBoardley R.N.) Decadron IV 10 mg (NOW) (12:00 08/19/2016 Jose Roman) (Ack 12:02 JBoardley R.N.) (12:20 JBoardley R.N.) Dilaudid IV 1 mg (HIGH ALERT MEDICATION, NOW) (13:06 08/19/2016 Jose Roman) (Ack 13:07 JBoardley R.N.) (13:09 Nubia Meredith) ORDER SHEET NOTES: [Electronically signed by Barrett Scott Dr. (13:36 08/19/2016)] [Electronically signed by Barry Moreno R.N. (13:45 08/19/2016)] [Electronically locked/signed by Barry Moreno R.N. (13:45 08/19/2016)]
--- NOTE | 2016-08-19 13:46 | ED MED RECONCILIATION SUMMARY ---
Patient: JANIS YANG Medication Reconciliation Report [facility] VisitID: [id number] [address] [place] [address] 50y, F Registration Date/Time: 08/19/2016 Weight: 92.5 kg Height/Length: 65 in. BMI: 34.0 ALLERGIES: Naproxen, NSAIDs, Paper tape, Sulfa Drugs The patient's Home Medications are listed below: CONTINUE TAKING THE FOLLOWING MEDICATIONS: LaMICtal Oral (100 mg) 2 tablets, at bedtime Levothyroxine Sodium Oral 50 mcg, daily Neurontin Oral 300 mg, 3x a day OxyCODONE HCl Oral Prazosin HCl Oral 1 mg, daily SEROquel Oral (200 mg) 2 tablets, at bedtime TiZANidine HCl Oral 8mg, at bedtime Wellbutrin Oral 150 mg, daily Zofran Oral 4 mg, PRN The source(s) of the original Home Medication information: patient's family member patient The following Medications were given to the patient in the Emergency Department: Zofran ODT [PO] PO 4 mg, administered: 08/19/2016 11:54:00 AM IV NS IV Fluids bolus 0, then 1000 mL/hr, administered: 08/19/2016 12:14:00 PM Dilaudid [IVP] IVP 2 mg, administered: 08/19/2016 12:15:00 PM Benadryl [IVP] IVP 25 mg, administered: 08/19/2016 12:19:00 PM Decadron [IVP] IVP 10 mg, administered: 08/19/2016 12:20:00 PM PHENERGAN [IVP] IVP 25 mg, administered: 08/19/2016 12:20:00 PM Dilaudid [IVP] IVP 1 mg, administered: 08/19/2016 1:09:00 PM The following Medications were prescribed to the patient: None.
--- NOTE | 2016-08-19 13:46 | ED MED RECONCILIATION SUMMARY ---
Patient: JANIS YANG Medication Reconciliation Report [facility] VisitID: [id number] [address] [place] [address] 50y, F Registration Date/Time: 08/19/2016 Weight: 92.5 kg Height/Length: 65 in. BMI: 34.0 ALLERGIES: Naproxen, NSAIDs, Paper tape, Sulfa Drugs The patient's Home Medications are listed below: CONTINUE TAKING THE FOLLOWING MEDICATIONS: LaMICtal Oral (100 mg) 2 tablets, at bedtime Levothyroxine Sodium Oral 50 mcg, daily Neurontin Oral 300 mg, 3x a day OxyCODONE HCl Oral Prazosin HCl Oral 1 mg, daily SEROquel Oral (200 mg) 2 tablets, at bedtime TiZANidine HCl Oral 8mg, at bedtime Wellbutrin Oral 150 mg, daily Zofran Oral 4 mg, PRN The source(s) of the original Home Medication information: patient's family member patient The following Medications were given to the patient in the Emergency Department: Zofran ODT [PO] PO 4 mg, administered: 08/19/2016 11:54:00 AM IV NS IV Fluids bolus 0, then 1000 mL/hr, administered: 08/19/2016 12:14:00 PM Dilaudid [IVP] IVP 2 mg, administered: 08/19/2016 12:15:00 PM Benadryl [IVP] IVP 25 mg, administered: 08/19/2016 12:19:00 PM Decadron [IVP] IVP 10 mg, administered: 08/19/2016 12:20:00 PM PHENERGAN [IVP] IVP 25 mg, administered: 08/19/2016 12:20:00 PM Dilaudid [IVP] IVP 1 mg, administered: 08/19/2016 1:09:00 PM The following Medications were prescribed to the patient: None.
--- NOTE | 2016-08-19 13:46 | ED MAR SUMMARY ---
..... Medication Administration Record [facility] [address] [place] [address] Patient: JANIS YANG Visit ID: [id number] 50y, F Weight: 92.5 kg Height/Length: 65 in BMI: 34 ALLERGIES: Naproxen, NSAIDs, Paper tape, Sulfa Drugs Given 11:54 08/19/2016 Barry Moreno R.N. Medication Administered: ZOFRAN ODT [PO] (ONDANSETRON), Dose: 4 mg PO. Medication Ordered: Zofran ODT PO 4 mg (NOW). Start 12:14 08/19/2016 Barry Moreno R.N., Stop 12:56 08/19/2016 Barry Moreno R.N. Medication Administered: IV NS (SALINE), Dose: IV Fluids over 1 hour(s), Rate: 1000 mL/hr, Dispensed: 1000 mL bag, Site: #1 right AC. Medication Ordered: IV NS : initial bolus 1000 mL (1000 mL/hr), then none - for X1 (NOW). Given 12:15 08/19/2016 Barry Moreno R.N. Medication Administered: DILAUDID [IVP] (HYDROMORPHONE HCL PF), Dose: 2 mg IVP over 2 minute(s), Site: #1 right AC. Medication Ordered: Dilaudid IV 2 mg (HIGH ALERT MEDICATION, NOW). Given 12:19 08/19/2016 Barry Moreno R.N. Medication Administered: BENADRYL [IVP] (DIPHENHYDRAMINE HCL), Dose: 25 mg IVP over 2 minute(s), Site: #1 right AC. Medication Ordered: Benadryl IV 25 mg (NOW). Given 12:20 08/19/2016 Barry Moreno R.N. Medication Administered: DECADRON [IVP], Dose: 10 mg IVP over 2 minute(s), Site: #1 right AC. Medication Ordered: Decadron IV 10 mg (NOW). Given 12:20 08/19/2016 Barry Moreno R.N. Medication Administered: PHENERGAN [IVP] (PROMETHAZINE HCL), Dose: 25 mg IVP over 2 minute(s), Site: #1 right AC. Medication Ordered: Phenergan IV 25 mg (HIGH ALERT MEDICATION, NOW). Given 13:09 08/19/2016 Barry Moreno R.N. Medication Administered: DILAUDID [IVP] (HYDROMORPHONE HCL PF), Dose: 1 mg IVP over 2 minute(s), Site: #1 right AC. Medication Ordered: Dilaudid IV 1 mg (HIGH ALERT MEDICATION, NOW).
--- NOTE | 2016-08-19 13:46 | ED MAR SUMMARY ---
..... Medication Administration Record [facility] [address] [place] [address] Patient: JANIS YANG Visit ID: [id number] 50y, F Weight: 92.5 kg Height/Length: 65 in BMI: 34 ALLERGIES: Naproxen, NSAIDs, Paper tape, Sulfa Drugs Given 11:54 08/19/2016 Barry Moreno R.N. Medication Administered: ZOFRAN ODT [PO] (ONDANSETRON), Dose: 4 mg PO. Medication Ordered: Zofran ODT PO 4 mg (NOW). Start 12:14 08/19/2016 Barry Moreno R.N., Stop 12:56 08/19/2016 Barry Moreno R.N. Medication Administered: IV NS (SALINE), Dose: IV Fluids over 1 hour(s), Rate: 1000 mL/hr, Dispensed: 1000 mL bag, Site: #1 right AC. Medication Ordered: IV NS : initial bolus 1000 mL (1000 mL/hr), then none - for X1 (NOW). Given 12:15 08/19/2016 Barry Moreno R.N. Medication Administered: DILAUDID [IVP] (HYDROMORPHONE HCL PF), Dose: 2 mg IVP over 2 minute(s), Site: #1 right AC. Medication Ordered: Dilaudid IV 2 mg (HIGH ALERT MEDICATION, NOW). Given 12:19 08/19/2016 Barry Moreno R.N. Medication Administered: BENADRYL [IVP] (DIPHENHYDRAMINE HCL), Dose: 25 mg IVP over 2 minute(s), Site: #1 right AC. Medication Ordered: Benadryl IV 25 mg (NOW). Given 12:20 08/19/2016 Barry Moreno R.N. Medication Administered: DECADRON [IVP], Dose: 10 mg IVP over 2 minute(s), Site: #1 right AC. Medication Ordered: Decadron IV 10 mg (NOW). Given 12:20 08/19/2016 Barry Moreno R.N. Medication Administered: PHENERGAN [IVP] (PROMETHAZINE HCL), Dose: 25 mg IVP over 2 minute(s), Site: #1 right AC. Medication Ordered: Phenergan IV 25 mg (HIGH ALERT MEDICATION, NOW). Given 13:09 08/19/2016 Barry Moreno R.N. Medication Administered: DILAUDID [IVP] (HYDROMORPHONE HCL PF), Dose: 1 mg IVP over 2 minute(s), Site: #1 right AC. Medication Ordered: Dilaudid IV 1 mg (HIGH ALERT MEDICATION, NOW).
--- NOTE | 2016-08-19 13:46 | ED DISCHARGE INSTRUCTIONS ---
Patient: JANIS YANG General Instructions [facility] VisitID: [id number] [place] [address] 50y, F Registration Date/Time: 08/19/2016 Acute headache (retro-orbital bilateral). INSTRUCTIONS Warnings: GENERAL WARNINGS: Return or contact your physician immediately if your condition worsens or changes unexpectedly, if not improving as expected, or if other problems arise. SPECIFICALLY, return if you develop fever, vomiting, numbness, weakness, difficulty thinking, visual disturbances, fainting or extreme fatigue. Your Current Medications: CONTINUE TAKING THE FOLLOWING MEDICATIONS: LaMICtal Oral : Tablet 100 mg, 2 tablets at bedtime. Levothyroxine Sodium Oral : 50 mcg daily. Neurontin Oral : 300 mg 3x a day. OxyCODONE HCl Oral : prn. Prazosin HCl Oral : 1 mg daily. SEROquel Oral : Tablet 200 mg, 2 tablets at bedtime. TiZANidine HCl Oral : 8mg at bedtime. Wellbutrin Oral : 150 mg daily. Zofran Oral : 4 mg PRN. Follow-up: Return to the emergency department as needed. Follow up with your doctor in three days. Reason for referral: recheck today's concerns. Summary of care provided to patient via paper. Screening today revealed the patient's blood pressure to be in the normal range. The patient should follow up with a primary care provider for blood pressure management. Understanding of the discharge instructions verbalized by patient. ADDITIONAL INFORMATION Headache [Unspecified] The cause of your headache today is not clear, but it does not appear to be the sign of any serious illness. Under stress, some people tense the muscles of their shoulder, neck and scalp without knowing it. If this condition lasts long enough, a TENSION HEADACHE can occur. A MIGRAINE HEADACHE is caused by changes in blood flow to the brain. A migraine attack may be triggered by emotional stress, hormone changes during the menstrual cycle, oral contraceptives, alcohol use, certain foods containing tyramine, eye strain, weather changes, missing meals, lack of sleep or oversleeping. Other causes of headache include a viral illness with high fever, head injury with concussion, sinus, ear or throat infection, dental pain and TMJ (jaw joint) pain. More serious but less common causes of headache include stroke, brain hemorrhage, brain tumor, meningitis and encephalitis. Home Care: If you were given pain medicine for this headache, do not drive yourself home. Arrange for a ride, instead. When you get home, try to sleep. You should feel much better when you wake up. Apply heat to the back of your neck to relieve neck muscle spasm. Migraine headaches may respond best to an ice pack on the forehead or at the base of the skull. If you are having nausea or vomiting, follow a light diet until your headache is relieved. If you have a migraine type headache, use sunglasses when in the daylight or around bright indoor lighting until symptoms improve. Bright glaring light can worsen this kind of headache. Follow Up with your doctor if the headache is not better within the next 24 hours. If you have frequent headaches you should discuss a treatment plan with your primary care doctor. By being aware of the earliest signs of headache, and starting treatment right away, you may be able to stop the pain yourself. Get Prompt Medical Attention if any of the following occur: Worsening of your head pain or no improvement within 24 hours Repeated vomiting (unable to keep liquids down) Fever of 100.4F (38C) or higher, or as directed by your healthcare provider Stiff neck Extreme drowsiness, confusion or fainting Dizziness, vertigo (dizziness with spinning sensation) Weakness of an arm or leg or one side of the face Difficulty with speech or vision You have been given the following additional information: Headache, Unspecified (Electronically signed by Barrett Scott Dr. 08/19/2016 13:36)
== END 2016-08-19 13:41 | disposition home or self-care (01) ==
LOC: ED SRH 11:43
DX: R51 Headache (principal); H53.149 Visual discomfort, unspecified; R11.0 Nausea; Z79.899 Other long term (current) drug therapy; Z79.891 Long term (current) use of opiate analgesic

== ENCOUNTER 2016-09-19 18:56 | Emergency (ER) | payer OTHER ==
--- NOTE | 2016-09-19 20:42 | ED NURSING NOTES ---
Clinical Report - Nurses [facility] [address] [place] [address] 09/19/2016 18:58 Patient: JANIS YANG TRIAGE Acuity: LEVEL 4. Chief Complaint: HEADACHE. DURAN COMA SCORE: Duran Coma Scale: 15- eyes open spontaneously (4); best verbal response- oriented x 4 (5); best motor response- obeys commands (6). --19:16 Estefani Henriquez R.N. 19:10 09/19/16. BP: 114/82. HR: 70. RR: 18. O2 saturation: 100%. Temp: 97.7 F. Pain level now: 10/22. --19:16 Estefani Henriquez R.N. Weight: 89.8 kg stated. Height/Length: 65.5 inches Per Patient. BMI: 32.5. --19:14 Estefani Henriquez R.N. Medications LaMICtal Oral (Tablet 100 mg) 2 tablets, at bedtime. Levothyroxine Sodium Oral 50 mcg, daily. Neurontin Oral 300 mg, 3x a day. OxyCODONE HCl Oral, as needed. Prazosin HCl Oral 1 mg, daily. SEROquel Oral (Tablet 200 mg) 2 tablets, at bedtime. --19:15 Estefani Henriquez R.N. TiZANidine HCl Oral 8mg, at bedtime. Wellbutrin Oral 150 mg, daily. Zofran Oral 4 mg, PRN. --19:15 Estefani Henriquez R.N. Allergies Naproxen. Definite Severe (Abnormal bleeding) NSAIDs. Definite Moderate (Abnormal bleeding) Paper tape. Definite Moderate(rash) Sulfa Drugs. Definite Moderate(itching, rash) --19:15 Estefani Henriquez R.N. History Arrived by private vehicle. Historian: patient. Accompanied by spouse. This started X6 DAYS. She has had nausea. ( LIGHT SENSITIVE). No vomiting. SOCIAL HX: Never smoker. No alcohol use or drug use. --19:16 Estefani Henriquez R.N. PROBLEMS: Breast Cancer. Dysuria. Chronic Headache. Paronychia. Fibromyalgia. Migraine Headache. Lupus. --19:15 Estefani Henriquez R.N. Cancer [Inactive]. --19:15 Estefani Henriquez R.N. ADDITIONAL SURGERIES: Bariatric Surgery. Cholecystectomy. Gastric bypass. Hernia Repair. Hysterectomy. Inguinal Hernia Repair. Knee Surgery. Mastectomy. Oophorectomy. Salpingectomy. Tonsillectomy. Umbilical Hernia Repair. --19:15 Estefani Henriquez R.N. Interventions ID band on patient. To treatment room. --19:16 Estefani Henriquez R.N. PHYSICAL ASSESSMENT 19:16 09/19/16. Ambulatory to room. Patient gowned. GENERAL / NEURO / PSYCH: Alert. Oriented X 4. Appears in pain. Speech within normal limits. HEENT: No facial asymmetry noted. RESPIRATORY: Respirations not labored. GI / : Abdomen soft. SKIN: Skin is warm and dry. --19:16 Estefani Henriquez R.N. NURSING PROGRESS NOTES 19:09/19/16. Head of bed elevated. Lights dimmed. Patient identifiers checked. Call light placed in reach. Side rails up. Bed placed in lowest position. Patient ready for evaluation- chart flagged. --19:16 Estefani Henriquez R.N. 19:30 IV started and blood drawn , meds given. --20:22 Estefani Henriquez R.N. 20:15 09/19/16. BP: 108/65. HR: 74. RR: 18. O2 saturation: 100%. Temp: deferred. Pain level now: 10. Additional comments: pt states no real change in pain, ERPA notified . --20:23 Estefani Henriquez R.N. 19:30 09/19/2016 Site #1 started via IV in the left antecubital space with an 20g angiocath, with aseptic technique and good blood return; one attempt. Blood drawn: rainbow set. Labeled in the presence of the patient and sent to the lab. Saline lock flushed with 10 mL saline. --20:37 Estefani Henriquez R.N. 19:35 09/19/2016 Started bag #1 1000 mL IV Fluids IV NS (Saline); at 1000 mL/hr over 1 hour(s) via site #1 via IV pump. --20:38 Estefani Henriquez R.N. 19:37 09/19/2016 Reglan (Metoclopramide HCl) IVP 10 mg given over 2 minute(s) via site #1. IV patency established. IV site checked: no pain, redness, or swelling. IV flushed thoroughly pre- and post-medication administration. IVP given by RN. --20:38 Estefani Henriquez R.N. 19:40 09/19/2016 Benadryl (DiphenhydrAMINE HCl) IVP 25 mg given over 1 minute(s) via site #1. IV patency established. IV site checked: no pain, redness, or swelling. IV flushed thoroughly pre- and post-medication administration. IVP given by RN. --20:39 Estefani Henriquez R.N. 19:41 09/19/2016 Dilaudid (HYDROmorphone HCl PF) IVP 1 mg given over 1 minute(s) via site #1. IV patency established. IV site checked: no pain, redness, or swelling. IV flushed thoroughly pre- and post-medication administration. IVP given by RN. --20:39 Estefani Henriquez R.N. 20:25 09/19/2016 Decadron IVP 10 mg given over 2 minute(s) via site #1. IV patency established. IV site checked: no pain, redness, or swelling. IV flushed thoroughly pre- and post-medication administration. IVP given by RN. --20:39 Estefani Henriquez R.N. 20:27 09/19/2016 Dilaudid (HYDROmorphone HCl PF) IVP 2 mg given over 1 minute(s) via site #1. IV patency established. IV site checked: no pain, redness, or swelling. IV flushed thoroughly pre- and post-medication administration. IVP given by RN. --20:40 Estefani Henriquez R.N. 20:38 better after 2nd dose of meds, pain now 5/10. --22:06 Estefani Henriquez R.N. 20:40 09/19/2016 Site #1 removed upon discharge. Bandage applied. --22:07 Estefani Henriquez R.N. 20:40 09/19/2016 IV Fluids IV NS Discontinued: bag #1 infused upon discharge. Total amount infused: 1000 mL. IV patency established. IV site checked: no pain, redness, or swelling. IV flushed thoroughly. --22:07 Estefani Henriquez R.N. DISPOSITION / DISCHARGE 20:50. Condition at departure: improved and stable. No learning barriers present. Discharge instructions provided and reviewed with the patient and spouse. Reviewed medication(s) (cont home meds). Reviewed referrals (follow up with neurology). Patient and spouse verbalized understanding. Written instructions provided in Occitan. The patient was discharged home and accompanied by spouse. She left the Emergency Department ambulatory and via private vehicle. Spouse driving. --22:05 Estefani Henriquez R.N. 20:50 09/19/16. BP: 109/59. HR: 75. RR: 18. O2 saturation: 100%. Temp: deferred. Pain level now: 07/22. --22:05 Estefani Henriquez R.N. Locked/Released at 09/19/2016 22:08 by Estefani Henriquez R.N.
--- NOTE | 2016-09-19 20:42 | ED ORDER SUMMARY ---
..... Patient: JANIS YANG OrderSheet [facility] VisitID: [id number] [address] [place] [address] 50y, F Registration Date/Time: 09/19/2016 ORDER SHEET Weight: 89.8 kg (stated) Allergies: Naproxen, NSAIDs, Paper tape, Sulfa Drugs GENERAL ORDERS: MEDICATION ORDERS: IV FLUIDS: IV NS : initial bolus 1000 mL (1000 mL/hr), then 10 mL/hr for X1 (NOW); Pedro (19:22 09/19/2016 EKoroleva P.A.-C) (Ack 19:23 DDean R.N.) (20:38 DDean R.N.) Reglan IV 10 mg (NOW) (19:22 09/19/2016 EKoroleva P.A.-C) (Ack 19:23 DDean R.N.) (20:38 DDean R.N.) Dilaudid IV 1 mg (HIGH ALERT MEDICATION, NOW) (19:22 09/19/2016 EKoroleva P.A.-C) (Ack 19:23 DDean R.N.) (20:39 DDean R.N.) Benadryl IV 25 mg (NOW) (19:23 09/19/2016 EKoroleva P.A.-C) (Ack 19:24 DDean R.N.) (20:39 DDean R.N.) Decadron IV 10 mg (NOW) (20:21 09/19/2016 EKoroleva P.A.-C) (Ack 20:23 DDean R.N.) (20:39 DDean R.N.) Dilaudid IV 2 mg (HIGH ALERT MEDICATION, NOW) (20:22 09/19/2016 EKoroleva P.A.-C) (Ack 20:23 DDean R.N.) (20:40 DDean R.N.) ORDER SHEET NOTES: [Electronically signed by Diandra Larsen PFlorianA.-C (21:02 09/19/2016)] [Electronically signed by Estefani Henriquez R.N. (22:09/19/2016)] [Electronically locked/signed by Estefani Henriquez R.N. (:09/19/2016)]
--- NOTE | 2016-09-19 20:42 | ED ORDER SUMMARY ---
..... Patient: JANIS YANG OrderSheet [facility] VisitID: [id number] [address] [place] [address] 50y, F Registration Date/Time: 09/19/2016 ORDER SHEET Weight: 89.8 kg (stated) Allergies: Naproxen, NSAIDs, Paper tape, Sulfa Drugs GENERAL ORDERS: MEDICATION ORDERS: IV FLUIDS: IV NS : initial bolus 1000 mL (1000 mL/hr), then 10 mL/hr for X1 (NOW); Pedro (19:22 09/19/2016 EKoroleva P.A.-C) (Ack 19:23 DDean R.N.) (20:38 DDean R.N.) Reglan IV 10 mg (NOW) (19:22 09/19/2016 EKoroleva P.A.-C) (Ack 19:23 DDean R.N.) (20:38 DDean R.N.) Dilaudid IV 1 mg (HIGH ALERT MEDICATION, NOW) (19:22 09/19/2016 EKoroleva P.A.-C) (Ack 19:23 DDean R.N.) (20:39 DDean R.N.) Benadryl IV 25 mg (NOW) (19:23 09/19/2016 EKoroleva P.A.-C) (Ack 19:24 DDean R.N.) (20:39 DDean R.N.) Decadron IV 10 mg (NOW) (20:21 09/19/2016 EKoroleva P.A.-C) (Ack 20:23 DDean R.N.) (20:39 DDean R.N.) Dilaudid IV 2 mg (HIGH ALERT MEDICATION, NOW) (20:22 09/19/2016 EKoroleva P.A.-C) (Ack 20:23 DDean R.N.) (20:40 DDean R.N.) ORDER SHEET NOTES: [Electronically signed by Diandra Larsen PFlorianA.-C (21:02 09/19/2016)] [Electronically signed by Estefani Henriquez R.N. (22:09/19/2016)] [Electronically locked/signed by Estefani Henriquez R.N. (:09/19/2016)]
--- NOTE | 2016-09-19 20:42 | ED CLINICAL REPORT ---
Clinical Report - Physicians/Mid Levels [facility] [address] [place] [address] 09/19/2016 18:58 Patient: JANIS YANG Time Seen: 19:15 Sep 19 2016. Arrived- By private vehicle. Historian- patient. HISTORY OF PRESENT ILLNESS Is still present. Chief Complaint: HEADACHE. 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 No blurred vision, photophobia, associated nausea or numbness. (Pain is exact same as she has had in the past. Patient reports she believes the pain is from her neck. Patient usually has tender 15 days of headache pain a month. Denies any trauma. Denies any nausea or vomiting. Denies any neck pain. Denies any vision changes.). REVIEW OF SYSTEMS No fever, sinus pressure, ear pain, chest pain or difficulty breathing. No skin rash or enlarged lymph nodes. All systems otherwise negative, except as recorded above. PAST HISTORY Problems: Breast Cancer. Dysuria. LNMP - Last Normal Menstrual Period. Chronic Headache. Paronychia. Tetanus Status. Fibromyalgia. Migraine Headache. Lupus. Headache. Immunizations. Cancer [Inactive]. Additional Surgeries: Bariatric Surgery. Cholecystectomy. Gastric bypass. Hernia Repair. Hysterectomy. Inguinal Hernia Repair. Knee Surgery. Mastectomy. Oophorectomy. Salpingectomy. Tonsillectomy. Umbilical Hernia Repair. Medications: TiZANidine HCl Oral 8mg, at bedtime. Wellbutrin Oral 150 mg, daily. Zofran Oral 4 mg, PRN. LaMICtal Oral (Tablet 100 mg) 2 tablets, at bedtime. Levothyroxine Sodium Oral 50 mcg, daily. Neurontin Oral 300 mg, 3x a day. OxyCODONE HCl Oral, as needed. Prazosin HCl Oral 1 mg, daily. SEROquel Oral (Tablet 200 mg) 2 tablets, at bedtime. Allergies: Naproxen. Definite Severe (Abnormal bleeding) NSAIDs. Definite Moderate (Abnormal bleeding) Paper tape. Definite Moderate(rash) Sulfa Drugs. Definite Moderate(itching, rash). SOCIAL HISTORY Never smoker. No alcohol use or drug use. ADDITIONAL NOTES The nursing notes have been reviewed. PHYSICAL EXAM Vital Signs: 09/19/2016 19:10 BP: 114/82. HR: 70. RR: 18. O2 saturation: 100%. Temp: 97.7 F. Pain level now: 8/10. Appearance: Alert. Eyes: Pupils equal, round and reactive to light. Eyes normal inspection. ENT: Ears normal. Nose normal. Pharynx normal. No pharyngeal erythema. Neck: Normal inspection. CVS: Normal heart rate and rhythm. Heart sounds normal. Respiratory: No respiratory distress. Breath sounds normal. No decreased air movement. Abdomen: Soft and nontender. Skin: Skin warm. Normal skin color. Neuro: Oriented X 3. Alert. Mood/affect normal. Speech normal. Cranial nerves normal (as tested). No cerebellar findings. No motor deficit. PROGRESS AND PROCEDURES Course of Care: Previous ER records reviewed. Patient with adeno, receiving oxycodone from her primary care provider. Patient is urged to follow-up with her primary care doctor, also to follow-up with neurology. No signs or concerns for any acute meningitis. Negative neuro exam. 09/19/2016 20:15 BP: 108/65. HR: 74. RR: 18. O2 saturation: 100%. Pain level now: 7/10. Patient is stable. Symptoms better. Patient/family counseled. Disposition: Discharged. CLINICAL IMPRESSION Headache. INSTRUCTIONS (please follow up with NEUROLOGY with your own/ [facility] or: [phone]). Warnings: SEDATIVE MEDICATION: You were given sedative medication during your visit. Do not drive or operate dangerous machinery. CONTROLLED SUBSTANCE WARNINGS. Follow-up: Follow up with a specialist. (Electronically signed by Diandra Larsen P.A.-C 09/19/2016 21:02)
--- NOTE | 2016-09-19 20:42 | ED CLINICAL REPORT ---
Clinical Report - Physicians/Mid Levels [facility] [address] [place] [address] 09/19/2016 18:58 Patient: JANIS YANG Time Seen: 19:15 Sep 19 2016. Arrived- By private vehicle. Historian- patient. HISTORY OF PRESENT ILLNESS Is still present. Chief Complaint: HEADACHE. 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 No blurred vision, photophobia, associated nausea or numbness. (Pain is exact same as she has had in the past. Patient reports she believes the pain is from her neck. Patient usually has tender 15 days of headache pain a month. Denies any trauma. Denies any nausea or vomiting. Denies any neck pain. Denies any vision changes.). REVIEW OF SYSTEMS No fever, sinus pressure, ear pain, chest pain or difficulty breathing. No skin rash or enlarged lymph nodes. All systems otherwise negative, except as recorded above. PAST HISTORY Problems: Breast Cancer. Dysuria. LNMP - Last Normal Menstrual Period. Chronic Headache. Paronychia. Tetanus Status. Fibromyalgia. Migraine Headache. Lupus. Headache. Immunizations. Cancer [Inactive]. Additional Surgeries: Bariatric Surgery. Cholecystectomy. Gastric bypass. Hernia Repair. Hysterectomy. Inguinal Hernia Repair. Knee Surgery. Mastectomy. Oophorectomy. Salpingectomy. Tonsillectomy. Umbilical Hernia Repair. Medications: TiZANidine HCl Oral 8mg, at bedtime. Wellbutrin Oral 150 mg, daily. Zofran Oral 4 mg, PRN. LaMICtal Oral (Tablet 100 mg) 2 tablets, at bedtime. Levothyroxine Sodium Oral 50 mcg, daily. Neurontin Oral 300 mg, 3x a day. OxyCODONE HCl Oral, as needed. Prazosin HCl Oral 1 mg, daily. SEROquel Oral (Tablet 200 mg) 2 tablets, at bedtime. Allergies: Naproxen. Definite Severe (Abnormal bleeding) NSAIDs. Definite Moderate (Abnormal bleeding) Paper tape. Definite Moderate(rash) Sulfa Drugs. Definite Moderate(itching, rash). SOCIAL HISTORY Never smoker. No alcohol use or drug use. ADDITIONAL NOTES The nursing notes have been reviewed. PHYSICAL EXAM Vital Signs: 09/19/2016 19:10 BP: 114/82. HR: 70. RR: 18. O2 saturation: 100%. Temp: 97.7 F. Pain level now: 8/10. Appearance: Alert. Eyes: Pupils equal, round and reactive to light. Eyes normal inspection. ENT: Ears normal. Nose normal. Pharynx normal. No pharyngeal erythema. Neck: Normal inspection. CVS: Normal heart rate and rhythm. Heart sounds normal. Respiratory: No respiratory distress. Breath sounds normal. No decreased air movement. Abdomen: Soft and nontender. Skin: Skin warm. Normal skin color. Neuro: Oriented X 3. Alert. Mood/affect normal. Speech normal. Cranial nerves normal (as tested). No cerebellar findings. No motor deficit. PROGRESS AND PROCEDURES Course of Care: Previous ER records reviewed. Patient with adeno, receiving oxycodone from her primary care provider. Patient is urged to follow-up with her primary care doctor, also to follow-up with neurology. No signs or concerns for any acute meningitis. Negative neuro exam. 09/19/2016 20:15 BP: 108/65. HR: 74. RR: 18. O2 saturation: 100%. Pain level now: 7/10. Patient is stable. Symptoms better. Patient/family counseled. Disposition: Discharged. CLINICAL IMPRESSION Headache. INSTRUCTIONS (please follow up with [facility]UR[facility] with [facility]/ [facility] or: [phone]). Warnings: SEDATIVE MEDICATION: You were given sedative medication during your visit. Do not drive or operate dangerous machinery. CONTROLLED SUBSTANCE WARNINGS. Follow-up: Follow up with a specialist. (Electronically signed by Diandra Larsen P.A.-C 09/19/2016 21:02)
--- NOTE | 2016-09-19 22:08 | ED DISCHARGE INSTRUCTIONS ---
Patient: JANIS YANG General Instructions [facility] VisitID: [id number] [place] [address] 50y, F Registration Date/Time: 09/19/2016 Headache. INSTRUCTIONS (please follow up with NEUROLOGY with your own/ [facility] or: [phone]). Warnings: SEDATIVE MEDICATION: You were given sedative medication during your visit. Do not drive or operate dangerous machinery. CONTROLLED SUBSTANCE WARNINGS. Follow-up: Follow up with a specialist. ADDITIONAL INFORMATION Headache [Unspecified] The cause of your headache today is not clear, but it does not appear to be the sign of any serious illness. Under stress, some people tense the muscles of their shoulder, neck and scalp without knowing it. If this condition lasts long enough, a TENSION HEADACHE can occur. A MIGRAINE HEADACHE is caused by changes in blood flow to the brain. A migraine attack may be triggered by emotional stress, hormone changes during the menstrual cycle, oral contraceptives, alcohol use, certain foods containing tyramine, eye strain, weather changes, missing meals, lack of sleep or oversleeping. Other causes of headache include a viral illness with high fever, head injury with concussion, sinus, ear or throat infection, dental pain and TMJ (jaw joint) pain. More serious but less common causes of headache include stroke, brain hemorrhage, brain tumor, meningitis and encephalitis. Home Care: If you were given pain medicine for this headache, do not drive yourself home. Arrange for a ride, instead. When you get home, try to sleep. You should feel much better when you wake up. Apply heat to the back of your neck to relieve neck muscle spasm. Migraine headaches may respond best to an ice pack on the forehead or at the base of the skull. If you are having nausea or vomiting, follow a light diet until your headache is relieved. If you have a migraine type headache, use sunglasses when in the daylight or around bright indoor lighting until symptoms improve. Bright glaring light can worsen this kind of headache. Follow Up with your doctor if the headache is not better within the next 24 hours. If you have frequent headaches you should discuss a treatment plan with your primary care doctor. By being aware of the earliest signs of headache, and starting treatment right away, you may be able to stop the pain yourself. Get Prompt Medical Attention if any of the following occur: Worsening of your head pain or no improvement within 24 hours Repeated vomiting (unable to keep liquids down) Fever of 100.4F (38C) or higher, or as directed by your healthcare provider Stiff neck Extreme drowsiness, confusion or fainting Dizziness, vertigo (dizziness with spinning sensation) Weakness of an arm or leg or one side of the face Difficulty with speech or vision You have been given the following additional information: Headache, Unspecified (Electronically signed by Diandra Larsen P.A.-C 09/19/2016 21:02)
--- NOTE | 2016-09-19 22:08 | ED DISCHARGE INSTRUCTIONS ---
Patient: JANIS YANG General Instructions [facility] VisitID: [id number] [place] [address] 50y, F Registration Date/Time: 09/19/2016 Headache. INSTRUCTIONS (please follow up with NEUROLOGY with your own/ [facility] or: [phone]). Warnings: SEDATIVE MEDICATION: You were given sedative medication during your visit. Do not drive or operate dangerous machinery. CONTROLLED SUBSTANCE WARNINGS. Follow-up: Follow up with a specialist. ADDITIONAL INFORMATION Headache [Unspecified] The cause of your headache today is not clear, but it does not appear to be the sign of any serious illness. Under stress, some people tense the muscles of their shoulder, neck and scalp without knowing it. If this condition lasts long enough, a TENSION HEADACHE can occur. A MIGRAINE HEADACHE is caused by changes in blood flow to the brain. A migraine attack may be triggered by emotional stress, hormone changes during the menstrual cycle, oral contraceptives, alcohol use, certain foods containing tyramine, eye strain, weather changes, missing meals, lack of sleep or oversleeping. Other causes of headache include a viral illness with high fever, head injury with concussion, sinus, ear or throat infection, dental pain and TMJ (jaw joint) pain. More serious but less common causes of headache include stroke, brain hemorrhage, brain tumor, meningitis and encephalitis. Home Care: If you were given pain medicine for this headache, do not drive yourself home. Arrange for a ride, instead. When you get home, try to sleep. You should feel much better when you wake up. Apply heat to the back of your neck to relieve neck muscle spasm. Migraine headaches may respond best to an ice pack on the forehead or at the base of the skull. If you are having nausea or vomiting, follow a light diet until your headache is relieved. If you have a migraine type headache, use sunglasses when in the daylight or around bright indoor lighting until symptoms improve. Bright glaring light can worsen this kind of headache. Follow Up with your doctor if the headache is not better within the next 24 hours. If you have frequent headaches you should discuss a treatment plan with your primary care doctor. By being aware of the earliest signs of headache, and starting treatment right away, you may be able to stop the pain yourself. Get Prompt Medical Attention if any of the following occur: Worsening of your head pain or no improvement within 24 hours Repeated vomiting (unable to keep liquids down) Fever of 100.4F (38C) or higher, or as directed by your healthcare provider Stiff neck Extreme drowsiness, confusion or fainting Dizziness, vertigo (dizziness with spinning sensation) Weakness of an arm or leg or one side of the face Difficulty with speech or vision You have been given the following additional information: Headache, Unspecified (Electronically signed by Diandra Larsen P.A.-C 09/19/2016 21:02)
--- NOTE | 2016-09-19 22:08 | ED MAR SUMMARY ---
..... Medication Administration Record [facility] [address] [place] [address] Patient: JANIS YANG Visit ID: [id number] 50y, F Weight: 89.8 kg Height/Length: 65.5 in BMI: 32.5 ALLERGIES: Naproxen, NSAIDs, Paper tape, Sulfa Drugs Start 19:35 09/19/2016 Estefani Henriquez R.N., Stop 20:40 09/19/2016 Estefani Henriquez R.N. Medication Administered: IV NS (SALINE), Dose: IV Fluids over 1 hour(s), Rate: 1000 mL/hr, Dispensed: 1000 mL bag, Site: #1 left AC. Medication Ordered: IV NS : initial bolus 1000 mL (1000 mL/hr), then 10 mL/hr for X1 (NOW); Pedro. Given 19:37 09/19/2016 Estefani Henriquez R.N. Medication Administered: REGLAN [IVP] (METOCLOPRAMIDE HCL), Dose: 10 mg IVP over 2 minute(s), Site: #1 left AC. Medication Ordered: Reglan IV 10 mg (NOW). Given 19:40 09/19/2016 Estefani Henriquez R.N. Medication Administered: BENADRYL [IVP] (DIPHENHYDRAMINE HCL), Dose: 25 mg IVP over 1 minute(s), Site: #1 left AC. Medication Ordered: Benadryl IV 25 mg (NOW). Given 19:41 09/19/2016 Estefani Henriquez R.N. Medication Administered: DILAUDID [IVP] (HYDROMORPHONE HCL PF), Dose: 1 mg IVP over 1 minute(s), Site: #1 left AC. Medication Ordered: Dilaudid IV 1 mg (HIGH ALERT MEDICATION, NOW). Given 20:25 09/19/2016 Estefani Henriquez R.N. Medication Administered: DECADRON [IVP], Dose: 10 mg IVP over 2 minute(s), Site: #1 left AC. Medication Ordered: Decadron IV 10 mg (NOW). Given 20:27 09/19/2016 Estefani Henriquez R.N. Medication Administered: DILAUDID [IVP] (HYDROMORPHONE HCL PF), Dose: 2 mg IVP over 1 minute(s), Site: #1 left AC. Medication Ordered: Dilaudid IV 2 mg (HIGH ALERT MEDICATION, NOW).
--- NOTE | 2016-09-19 22:08 | ED MED RECONCILIATION SUMMARY ---
Patient: JANIS YANG Medication Reconciliation Report [facility] VisitID: [id number] [address] [place] [address] 50y, F Registration Date/Time: 09/19/2016 Weight: 89.8 kg Height/Length: (not available) BMI: 32.5 ALLERGIES: Naproxen, NSAIDs, Paper tape, Sulfa Drugs The patient's Home Medications are listed below: THE FOLLOWING MEDICATIONS NEED TO BE RECONCILED: LaMICtal Oral (100 mg) 2 tablets, at bedtime Levothyroxine Sodium Oral 50 mcg, daily Neurontin Oral 300 mg, 3x a day OxyCODONE HCl Oral Prazosin HCl Oral 1 mg, daily SEROquel Oral (200 mg) 2 tablets, at bedtime TiZANidine HCl Oral 8mg, at bedtime Wellbutrin Oral 150 mg, daily Zofran Oral 4 mg, PRN The source(s) of the original Home Medication information: Not obtained. The following Medications were given to the patient in the Emergency Department: IV NS IV Fluids bolus 0, then 1000 mL/hr, administered: 09/19/2016 7:35:00 PM Reglan [IVP] IVP 10 mg, administered: 09/19/2016 7:37:00 PM Benadryl [IVP] IVP 25 mg, administered: 09/19/2016 7:40:00 PM Dilaudid [IVP] IVP 1 mg, administered: 09/19/2016 7:41:00 PM Decadron [IVP] IVP 10 mg, administered: 09/19/2016 8:25:00 PM Dilaudid [IVP] IVP 2 mg, administered: 09/19/2016 8:27:00 PM The following Medications were prescribed to the patient: None.
--- NOTE | 2016-09-19 22:08 | ED MAR SUMMARY ---
..... Medication Administration Record [facility] [address] [place] [address] Patient: JANIS YANG Visit ID: [id number] 50y, F Weight: 89.8 kg Height/Length: 65.5 in BMI: 32.5 ALLERGIES: Naproxen, NSAIDs, Paper tape, Sulfa Drugs Start 19:35 09/19/2016 Estefani Henriquez R.N., Stop 20:40 09/19/2016 Estefani Henriquez R.N. Medication Administered: IV NS (SALINE), Dose: IV Fluids over 1 hour(s), Rate: 1000 mL/hr, Dispensed: 1000 mL bag, Site: #1 left AC. Medication Ordered: IV NS : initial bolus 1000 mL (1000 mL/hr), then 10 mL/hr for X1 (NOW); Pedro. Given 19:37 09/19/2016 Estefani Henriquez R.N. Medication Administered: REGLAN [IVP] (METOCLOPRAMIDE HCL), Dose: 10 mg IVP over 2 minute(s), Site: #1 left AC. Medication Ordered: Reglan IV 10 mg (NOW). Given 19:40 09/19/2016 Estefani Henriquez R.N. Medication Administered: BENADRYL [IVP] (DIPHENHYDRAMINE HCL), Dose: 25 mg IVP over 1 minute(s), Site: #1 left AC. Medication Ordered: Benadryl IV 25 mg (NOW). Given 19:41 09/19/2016 Estefani Henriquez R.N. Medication Administered: DILAUDID [IVP] (HYDROMORPHONE HCL PF), Dose: 1 mg IVP over 1 minute(s), Site: #1 left AC. Medication Ordered: Dilaudid IV 1 mg (HIGH ALERT MEDICATION, NOW). Given 20:25 09/19/2016 Estefani Henriquez R.N. Medication Administered: DECADRON [IVP], Dose: 10 mg IVP over 2 minute(s), Site: #1 left AC. Medication Ordered: Decadron IV 10 mg (NOW). Given 20:27 09/19/2016 Estefani Henriquez R.N. Medication Administered: DILAUDID [IVP] (HYDROMORPHONE HCL PF), Dose: 2 mg IVP over 1 minute(s), Site: #1 left AC. Medication Ordered: Dilaudid IV 2 mg (HIGH ALERT MEDICATION, NOW).
--- NOTE | 2016-09-19 22:08 | ED MED RECONCILIATION SUMMARY ---
Patient: JANIS YANG Medication Reconciliation Report [facility] VisitID: [id number] [address] [place] [address] 50y, F Registration Date/Time: 09/19/2016 Weight: 89.8 kg Height/Length: (not available) BMI: 32.5 ALLERGIES: Naproxen, NSAIDs, Paper tape, Sulfa Drugs The patient's Home Medications are listed below: THE FOLLOWING MEDICATIONS NEED TO BE RECONCILED: LaMICtal Oral (100 mg) 2 tablets, at bedtime Levothyroxine Sodium Oral 50 mcg, daily Neurontin Oral 300 mg, 3x a day OxyCODONE HCl Oral Prazosin HCl Oral 1 mg, daily SEROquel Oral (200 mg) 2 tablets, at bedtime TiZANidine HCl Oral 8mg, at bedtime Wellbutrin Oral 150 mg, daily Zofran Oral 4 mg, PRN The source(s) of the original Home Medication information: Not obtained. The following Medications were given to the patient in the Emergency Department: IV NS IV Fluids bolus 0, then 1000 mL/hr, administered: 09/19/2016 7:35:00 PM Reglan [IVP] IVP 10 mg, administered: 09/19/2016 7:37:00 PM Benadryl [IVP] IVP 25 mg, administered: 09/19/2016 7:40:00 PM Dilaudid [IVP] IVP 1 mg, administered: 09/19/2016 7:41:00 PM Decadron [IVP] IVP 10 mg, administered: 09/19/2016 8:25:00 PM Dilaudid [IVP] IVP 2 mg, administered: 09/19/2016 8:27:00 PM The following Medications were prescribed to the patient: None.
== END 2016-09-19 20:50 | disposition home or self-care (01) ==
LOC: ED SRH 18:56
DX: R51 Headache (principal); Z79.899 Other long term (current) drug therapy; Z88.2 Allergy status to sulfonamides; Z88.6 Allergy status to analgesic agent; Z91.09 Other allergy status, other than to drugs and biological substances